=== PATIENT | female | born 1945 | race Caucasian/White ===

== ENCOUNTER → 2023-08-20 08:56 | Outpatient (CLI) | payer MEDICARE, OTHER, SELFPAY ==
[2023-08-20 10:16] LABS: Add Manual Diff / Slide Review NO; Basophils Absolute Auto 100 /uL (0-100); Basophils Percent Auto 0.7 % (0-2); Eosinophils Absolute Auto 200 /uL (0-450); Eosinophils Percent Auto 1.9 % (2-4); Hematocrit 44.5 % (36-46); Hemoglobin 15.1 g/dL (12.0-16.0); Lymphocytes Absolute Auto 1700 /uL (1100-4500); Lymphocytes Percent Auto 18.7 % (25-40); Mean Corpuscular HGB Conc 33.9 % (30-36); Mean Corpuscular Hemoglobin 32.2 PG (26-34); Mean Corpuscular Volume 95.1 fL (80-100); Monocytes Absolute Auto 900 /uL (0-900); Monocytes Percent Auto 10.4 % (3-14); Neutrophils Absolute Auto 6100 /uL (1500-7000); Neutrophils Percent Auto 68.3 % (50-75); Platelet Count 273 X10^3/uL (150-400); Red Blood Cell Count 4.68 X10^6/uL (4.0-5.2); Red Cell Distribution Width 12.7 % (11.6-14.8); White Blood Cell Count 8.9 X10^3/uL (4.5-11.0)
[2023-08-20 10:17] LABS: Appearance Urine UA CLEAR; Bilirubin Urine UA NEGATIVE (NEGATIVE); Color Urine UA YELLOW; Glucose Urine UA NEGATIVE (Negative); Ketones Urine UA NEGATIVE (NEGATIVE); Leukocyte Esterase Urine UA NEGATIVE (NEGATIVE); Nitrite Urine UA NEGATIVE (Negative); Occult Blood Urine UA NEGATIVE (Negative); Protein Urine UA NEGATIVE (Negative); Specific Gravity Urine UA <=1.005 (1.000-1.035)
[2023-08-20 10:21] LABS: pH Urine UA 6.5 (4.5-8.0)
[2023-08-20 10:35] LABS: BUN Creatinine Ratio 11.5 (6-22); Blood Urea Nitrogen 7 mg/dL (7-17); Calcium 8.8 mg/dL (8.4-10.2); Carbon Dioxide 27 mmol/L (22-32); Chloride 105 mmol/L (98-107); Estimated Glomerular Filt Rate > 60 mL/min (>60); Glucose 78 mg/dL (80-110); HEMOLYSIS < 15 (0-50); Potassium 4.4 mmol/L (3.4-5.1); Sodium 138 mmol/L (137-145)
[2023-08-20 10:36] LABS: Bacteria Urine Few (2-10); Culture Indicated Urine Cult Not Indicated; RBC Urine None Seen (0-5/HPF); Squamous Epithelial Cell Urine 1-5 /HPF (0-5/HPF); Urine Volume 10mL (spun); WBC Urine None Seen (0-5/HPF)
== END ==
PROVIDERS: PCP Internal Medicine Geriatric Medicine; Referring Provider Orthopaedic Surgery; Visit Provider Orthopaedic Surgery
DX: Z01.818 Encounter for other preprocedural examination (principal); Z01.812 Encounter for preprocedural laboratory examination; N39.0 Urinary tract infection, site not specified
CPT/HCPCS: 36415; 80048; 81001; 85025; 93005

== ENCOUNTER 2023-09-28 11:31 | Day surgery (SDC) | payer MEDICARE, OTHER, SELFPAY ==
[2023-09-16 13:34] VITALS: BMI 38.1
[2023-09-28] VITALS (8 sets, daily range): BP systolic 115–156; BP diastolic 60–82; PULSE 76–90; RESP 14–20; TEMP 35.9–36.8; O2SAT 94–100; BMI 39.1
[2023-09-28] MEDS: LACTATED RINGERS 1,000 ML 42 ML IV ×2 (11:57→16:07)
[2023-09-28] MEDS: VANCOMYCIN 1,000 MG/200 ML PIGGYBACK 200 MG IV (12:28)
[2023-09-28] MEDS: ACETAMINOPHEN 325 MG TABLET 975 MG PO (12:28)
--- NOTE | 2023-09-28 14:13 | PM.PREOP ---
Pre-operative Note Interval Note History & Physical reviewed/Exam performed by Physician: Yes Changes to H&P: No
--- NOTE | 2023-09-28 14:14 | PM.OP.1 ---
Operative Date/Time/Diagnoses Date of procedure: 09/28/23 Time of procedure: 14:30 Pre-op diagnosis: right knee OA Post-op diagnosis: same Procedure & Clinicians Procedure: right total knee arthroplasty Same procedure as scheduled: Yes Indications: The patient has had progressively worsening right knee pain with radiographic changes consistent with arthritis. Non-operative management has failed and the patient has requested total knee replacement. The risks, benefits and alternatives to surgery were discussed with the patient prior to proceeding. Risks discussed included, but were not limited to, failure to relieve pain, stiffness, infection, nerve damage, deep venous thrombosis, pulmonary embolism, stroke, coma, heart attack, permanent paralysis and , as well as the potential need for eventual revision of the prosthetic. Surgeon: Hayde Garcia Supervisor Erection Shop: Mario Pereira Anesthesia Type: General Operative Notes Findings: Severe right knee OA, adequate bone, adequate stability Closure Type: primary Specimen(s): none sent Prosthetic devices, grafts, tissues, transplants, or devices: Right knee [facility] BCS 2 size 5 femur, 3 tibia, poly 9, patella 32 by 7.5mm Estimated Blood Loss (mL): 250 Blood products transfused: none Tourniquet time (min): 89 Procedure in detail: The patient was seen in the pre-operative area, where the patient identified the right knee as the operative site and this was marked with my initials. The patient received pre-operative antibiotics, and was taken to the operating room and placed on the operative table in the supine position. After satisfactory anesthesia, a [employer] out was performed. The right leg was encircled with a tourniquet about the proximal thigh, and the leg was prepared from the toes to the tourniquet with ChloroPrep in the usual fashion and draped through sterile drapes. The leg was elevated and exsanguinated with Eschmark bandage and the tourniquet inflated to [300] mmHg pressure. A PA was used during the procedure and was essential for intraoperative retraction and safe implantation of the components The knee was approached through an approximately 18 cm incision centered over the patella and carried into the knee through a medial parapatellar arthrotomy. Portion of the medial and lateral meniscus was resected. Soft tissue was carefully mobilized around the patella the patella was measured with a caliper. Bone was resected from the patella and the patellar height was reconstituted with up an appropriate sized patellar component. A cover was then placed on the patella. A small amount of additional medial and lateral meniscus was resected. Cori robotic pins were placed in the femur for navigation. The knee was carefully traced and pre and postoperative range of motion was carefully checked. The Cori shahzad was used to resect the distal femur. It looked like an appropriate distal femoral cut and the cut was made without difficulty. The rotation was assessed and the appropriate size femoral guide was placed on the distal femur and finishing cuts were made. There was no evidence of notching. The anterior, posterior and chamfer cuts were then made. The posterior osteophytes and soft tissues were then removed. The posterior capsule was injected with part of a mixture of 60 ml 0.25% Marcaine mixed with 20 ml Exparel for post operative pain control. The remainder of this mixture was injected into the capsule and subcutaneous tissues during cement curing. The tibia guide was carefully navigated both depth alignment and slope. This carefully pinned to the tibia and the saw was used to resect the proximal tibial plateau. It appeared to be an adequate cut. The rotation was assessed. The patient was placed in extension residual medial and lateral meniscus as well as any residual bone was carefully resected. [No] additional tibia was resected. Hemostasis was achieved especially posteriorly. Additional local was injected into the posterior capsule. The femoral component was trial was placed and the notch was finished. Trial tibial and femoral components were then placed and the knee placed through a range of motion. Range of motion was [0-130], with good stability throughout the range. The trials were then removed, and the tibia was finished. The bone was prepared with pulsatile lavage, and dried with a sponge. Cement was applied and the final prosthetics placed. Excess cement was removed during and after cement curing. A brief Betadine soak was performed. After confirming there was no extruded cement posteriorly, the final tibial insert was placed. The knee was copiously irrigated and the tourniquet deflated. Hemostasis was obtained with the Bovie cautery. The capsule was closed with interrupted Vicryl. The subcutaneous layer was closed with barbed sutures, and the skin with a running 3-0 V-Lock suture and skin grupo. A lorie dressing was applied and the patient was taken to recovery having tolerated the procedure well. Complications: none Post-operative Condition: stable Disposition: Acute Care Plan for aftercare: The patient will be maintained on a standard total knee replacement protocol with weight bearing as tolerated. The patient will receive aspirin and sequential compression devices for DVT prophylaxis. The patient will be discharged home when safe for the home environment.
--- NOTE | 2023-09-28 14:18 | SUR.PREOP ---
Time out performed at 1418 for nerve block placement by DIGITAL DESIGNER
--- NOTE | 2023-09-28 14:30 | DI.RAD.S_ITS ---
PROCEDURE: XR KNEE RT 1TO2V INDICATIONS: TOTAL RIGHT KNEE TECHNIQUE: 2 view(s) of the knee acquired. [facility] [place], XR KNEE 4+ VIEWS RIGHT, 09/10/2023, 11:10. FINDINGS: Bones: Patient is status post knee joint arthroplasty. Hardware components are in expected positions. Visualized bony structures are intact. Soft tissues: Overlying postoperative changes are noted. IMPRESSION: Expected post-operative appearance of the right knee arthroplasty. Dictated by: Robin Celeste M.D. on 09/29/2023 at 12:53 Approved by: Robin Celeste M.D. on 09/29/2023 at 12:53
--- NOTE | 2023-09-28 14:41 | SUR.PREOP ---
Block start time [1418] . Monitoring initiated and maintained throughout procedure. Oxygen and medications given per anesthesiologist instructions. Patient remained stable throughout procedure, no adverse reactions noted. Block end time [1432]. Tolerated adductor nerve block placement with no complications. VSS.
[2023-09-28] MEDS: TRANEXAMIC ACID 1,000 MG in SODIUM CHLORIDE 0.9% 100 ML 200 MG IV ×2 (15:00→16:53)
[2023-09-28] MEDS: CLINDAMYCIN 900 MG/50 ML PIGGYBACK 50 MG IV ×2 (15:00→23:05)
--- NOTE | 2023-09-28 15:26 | SUR.OPER ---
Supine on padded OR bed. Pillow under head, arms secured on padded armboards <90 degree abduction. Safety belt across torso. Non-operative leg secured with tape over blanket over lower leg. Operative leg secured in Juan positioner. Foam padded brace at thigh of operative leg.
[2023-09-28] MEDS: BUPIVACAINE 0.25% (PF) 30 ML, EPINEPHrine 0.15 MG INJ (15:33)
[2023-09-28] MEDS: BUPIVACAINE LIPOSOME 266 MG/20 ML VIAL INJ (15:36)
[2023-09-28] MEDS: OXYCODONE IR 5 MG TABLET PO (17:30)
[2023-09-28] MEDS: ONDANSETRON 4 MG/2 ML INJ IV (17:30)
[2023-09-28] MEDS: ACETAMINOPHEN 325 MG TABLET 650 MG PO ×2 (18:17→23:05)
[2023-09-28] MEDS: OXYCODONE IR 10 MG TABLET PO ×2 (18:18→20:53)
[2023-09-28] MEDS: LACTATED RINGERS 1,000 ML 100 ML IV (18:18)
[2023-09-28] MEDS: METOCLOPRAMIDE 10 MG/2 ML INJ IV (18:25)
[2023-09-28] MEDS: FUROSEMIDE 20 MG TABLET PO (20:53)
[2023-09-28] MEDS: TIZANIDINE 4 MG TABLET 2 MG PO (20:53)
[2023-09-28] MEDS: AMLODIPINE 5 MG TABLET PO (20:53)
[2023-09-28] MEDS: DOCUSATE 100 MG CAPSULE PO (20:53)
[2023-09-28] MEDS: ASPIRIN EC 81 MG TABLET PO (20:53)
[2023-09-28] MEDS: INSULIN GLARGINE 100 UNIT/ML 3ML PEN 40 UNIT SUBCUT (20:55)
[2023-09-28] MEDS: INSULIN LISPRO 100 UNIT/ML 3ML VIAL SUBCUT (20:55)
[2023-09-29] VITALS: BP 103/53; PULSE 78; RESP 17; TEMP 35.8; O2SAT 97
[2023-09-29] MEDS: OXYCODONE IR 10 MG TABLET PO ×5 (00:12→15:00)
[2023-09-29 04:00] VITALS: BP 130/56; PULSE 72; RESP 17; TEMP 35.8; O2SAT 97
[2023-09-29 05:09] LABS: Hematocrit 39.6 % (36-46); Hemoglobin 13.1 g/dL (12.0-16.0)
[2023-09-29] MEDS: ACETAMINOPHEN 325 MG TABLET 650 MG PO ×2 (05:15→12:25)
[2023-09-29] MEDS: CLINDAMYCIN 900 MG/50 ML PIGGYBACK 50 MG IV (05:59)
--- NOTE | 2023-09-29 07:40 | PM.DS.1 ---
History of Present Illness History of Present Illness Date Patient Seen: 09/29/23 Time Patient Seen: 07:40 Chief complaint: Right Total Knee Arthroplasty - Robot Narrative: right total knee arthroplasty Same procedure as scheduled: Yes Indications: The patient has had progressively worsening right knee pain with radiographic changes consistent with arthritis. Non-operative management has failed and the patient has requested total knee replacement. The risks, benefits and alternatives to surgery were discussed with the patient prior to proceeding. Risks discussed included, but were not limited to, failure to relieve pain, stiffness, infection, nerve damage, deep venous thrombosis, pulmonary embolism, stroke, coma, heart attack, permanent paralysis and , as well as the potential need for eventual revision of the prosthetic. Surgeon: Hayde Garcia Associate Producer: Mario Pereira Anesthesia Type: General Operative Notes Findings: Severe right knee OA, adequate bone, adequate stability Closure Type: primary Specimen(s): none sent Prosthetic devices, grafts, tissues, transplants, or devices: Right knee [employer] [facility] BCS 2 size 5 femur, 3 tibia, poly 9, patella 32 by 7.5mm Estimated Blood Loss (mL): 250 Blood products transfused: none Tourniquet time (min): 89 Discharge Providers Provider Date of admission: 09/28/2023 Discharge Date: 09/29/23 Primary care physician: Jair Leon MD Consults: 09/28/23 17:56 Consult to Discharge Planning Routine Comment: Consult to Occupational Therapy Evaluate & Treat Comment: Physician Instructions: Evaluate and treat Consult to Physical Therapy Evaluate & Treat Comment: Physician Instructions: postop TKA protocol Discharge provider: Lawrence Beaver PA-C Summary Hospital Course Discharge Diagnosis: Status post right knee arthroplasty Hospital Course: Multimodal pain control. Physical therapy. Status at Discharge Cognitive/behavioral status at discharge: oriented Functional status at discharge: uses cane/walker Overall status at discharge: patient is back to baseline Time Spent with Patient Time spent: Less than 30 minutes Exam Vital Signs (past 8 hours): - 09/29/23 00:00 09/29/23 04:00 Temperature 96.5 F L 96.5 F L Pulse Rate 78 72 Respiratory Rate 17 17 Blood Pressure 103/53 L 130/56 L Pulse Oximetry 97 97 Oxygen Flow Rate 0 0 Oxygen Delivery Method Room Air Oxygen Flow Rate 0 Narrative Exam Narrative: Patient is found resting comfortably in bed. Pain is controlled with oral medications. Patient is able to ambulate with assistance to urinate. Denies any fever chills nausea or vomiting. Denies any new numbness or tingling down the right lower extremity. She does state she has pre-existing bilateral neuropathy of the lower extremities. Dressing appears to be dry and well mantained. She is able dorsiflex and plantarflex at the ankles bilaterally against resistance. Able to flex and extend at the EHL bilaterally. Resp Effort & Inspection: normal respiratory effort and able to speak in complete sentences Objective Labs 09/29/23 04:17 Labs: Laboratory Results - last 24 hr 09/29/23 04:17 Hgb 13.1 Hct 39.6 PFSH Medical History (Updated 09/16/23 @ 14:32 by Brittnee George RN) History of COVID-19 (05/2022) Anesthesia complication Psoriasis Easy bruisability Breast cancer, left (05/2022) Osteoarthritis Diabetes HLD (hyperlipidemia) HTN (hypertension) Neuropathy Uses self-applied continuous glucose monitoring device Surgical History (Updated 09/16/23 @ 14:28 by Brittnee George RN) History of surgery Hx of bilateral mastectomy (05/2022) History of ankle surgery Hx of foot surgery Hx of tonsillectomy Hx of laparoscopy History of partial hysterectomy Hx of bilateral cataract extraction Social History household members: spouse Smoking Status: Former smoker alcohol intake: current Discharge Assessment & Plan Assessment and Plan Assessment: Status post right knee total arthroplasty Plan of Treatment: Discharge to home with family Patient states that she has on a pain contract in which she takes hydrocodone/acetaminophen on a monthly basis. She did state that the pain clinic was aware of her pending surgery and stated that she is allowed to receive narcotics from the surgeon. Explained to the patient that our policy is that we will prescribe oxycodone 5 mg to take every 4 hours as needed for postoperative pain #30. Any narcotics required after oxycodone has been exhausted is to be filled by her pain clinic provider. Patient is prescribed ibuprofen 600 mg take every 6 hours for mild pain inflammation. Patient may take [id number] acetaminophen 650 mg every 6 hours for low-grade pain. Patient states she already has antinausea medication at home. Patient will take aspirin 81 mg take 1 pill twice a day for DVT prophylaxis for 6 weeks. Patient will start physical therapy in the next 5-10 days. Patient will follow up in clinic in 2 weeks for wound check. Discharge Plan Discharge Plan Patient Disposition: Home Provider Discharge Comment: Pending PT approval Discharge orders & Medications Discharge Orders: Discharge (Order); Ordered 09/29/23 Ordered By: Lawrence Beaver Prescriptions: New aspirin 81 mg Tablet,Delayed Release (Dr/Ec) 81 mg PO BID Qty: 90 0RF acetaminophen 325 mg Tablet 650 mg PO Q6H Qty: 100 0RF oxycodone 5 mg Tablet 5 mg PO Q4HR PRN (Reason: Pain, Moderate (4-6)) Qty: 30 0RF ibuprofen 600 mg tablet 600 mg PO Q6HR Qty: 90 0RF Continued tizanidine 2 mg Tablet 2 mg PO BEDTIME amlodipine 5 mg Tablet 5 mg PO BID exemestane 25 mg Tablet 25 mg PO DAILY Rx Instructions: must administer after a meal furosemide 20 mg Tablet 20 mg PO BID acetaminophen 500 mg Capsule 500 mg PO DAILY PRN (Reason: Pain) insulin lispro 100 unit/mL Insulin Pen 8 unit SUBCUT TID insulin glargine [Lantus Solostar U-100 Insulin] 100 unit/mL (3 mL) Insulin Pen 40 unit SUBCUT BID Victoza 2-Chandana 0.6 mg/0.1 mL (18 mg/3 mL) Pen Injector 1.8 mg SUBCUT DAILY Discontinued hydrocodone-acetaminophen 7.5-325 mg Tablet 1 tab PO QD-BID Follow up/Referrals: Jair Leon MD [Primary Care Provider] - Hayde Garcia MD [Physician] - 10/12/23 11:30 am (Follow up w/ Rustam Beaver PA-C, at [facility] in [place].) Diet/Activity/Treatments Diet: Diet as Tolerated Activity: Weightbearing as tolerated. Walk frequently! Cold/Heat Therapy: Ice to knee as needed for pain. Skin/Wound/Dressing Care Report to your healthcare provider any signs of infection, such as:: chills, fever, night sweats, unusual drainage and unusual redness Dressing: May remove CORINNA wrap and shower on 10/01/2023. Leave dressing in place until follow up in office. In 5-7 days, batteries will , at which point you can cut off the battery pack and dispose of it. No bathing or otherwise soaking incision. Call the office if the dressing becomes saturated inside. Visit Report/Discharge Packet Stand Alone Forms: Patient Portal/API Discharge Data Primary Care Provider: Jair Leon Attending Provider: Sudhakar Horton VTE Deep Vein Thrombosis/Pulmonary Embolism Present on Admission: No
--- NOTE | 2023-09-29 09:00 | PT.IIE ---
Current Diagnoses Unilateral primary osteoarthritis, right knee (09/28/23) Surgery Performed Operation Date: 09/28/23 13:45 Actual Procedures p Total Knee Arthroplasty - Robot(Right) - Hayde Garcia MD Surgical History (Last Updated 09/16/23 @ 14:28 by Brittnee George, RN) History of ankle surgery History of partial hysterectomy History of surgery Hx of bilateral cataract extraction Hx of bilateral mastectomy (05/2022) Hx of foot surgery Hx of laparoscopy Hx of tonsillectomy Medical History (Last Updated 09/16/23 @ 14:32 by Brittnee George RN) Anesthesia complication Breast cancer, left (05/2022) Diabetes Easy bruisability History of COVID-19 (05/2022) HLD (hyperlipidemia) HTN (hypertension) Neuropathy Osteoarthritis Psoriasis Uses self-applied continuous glucose monitoring device Physical Therapy Inpatient Evaluation/Re-Eval M1 PT/OT-IP Prior Functional Status Start: 09/29/23 12:19 Freq: NEEDED Status: Active Protocol: Document 09/29/23 09:00 AB (Rec: 09/29/23 12:42 AB [id number]) Medical Review Prior Functional Status Medical History Reviewed Yes Communication able to make needs known Mobility and Gait pt stated that she was modified independent with all mobilities and ambulation without AD indoors with occasional use of her walking stick but uses her walking sticks all the time for outdoor mobility Activities of Daily Living and IADL's Pt having more difficulty with ADL and mobility needs. Prior Functional Level (Other details) Pt's daughter to stay to assist her and also her . Social History Household Members spouse Living Arrangements Mobile home Number of Floors (Floors) Two Floors Number of Stairs To Enter/Railing? 2 steps with R rail to enter the house Home Environment High Toilet,Walk in Shower Home Equipment Four Wheel Walker,Shower Seat without Backrest,Hand Held Shower,Grab Bars In Shower Additional Social History Comment pt has an adjustable bed M2 PT-IP Current Condition Start: 09/29/23 12:19 Freq: NEEDED Status: Active Protocol: Document 09/29/23 09:00 AB (Rec: 09/29/23 12:42 AB [id number]) Physical Therapy Current Condition Current Condition Evaluation Date 09/29/23 Treatment Diagnosis s/p R TKA; difficulty in walking Onset Date 09/28/23 M3 PT-IP Subjective Start: 09/29/23 12:19 Freq: NEEDED Status: Active Protocol: Document 09/29/23 09:00 AB (Rec: 09/29/23 12:42 AB [id number]) Subjective Physical Therapy Visit Type Type Initial Evaluation Visit Start Time 09:00 Visit Stop Time 10:10 Number of FINANCE ADVISOR Visits 0 Physical Therapy Visit Comments Patient Comments agreeable to do PT Therapy Pain Assessment Pain When Pain Assessed At Rest Pain Present Pain Present Pain Reported Location Right Knee Intensity 10 M4 PT-IP Mobility and Gait Start: 09/29/23 12:19 Freq: NEEDED Status: Active Protocol: Document 09/29/23 09:00 AB (Rec: 09/29/23 12:42 AB [id number]) PT-Bed Mobility Assessment Supine to Sit Supine to Sit Standby Assistance Sit to Supine Sit to Supine Standby Assistance,Minimal Assistance PT-Transfer Assessment Sit to and From Stand Sit to and from Stand Minimal Assistance,1 Person Assistance,Use of Upper Extremities Equipment Transfer Assistive Device Gait Belt,Front Wheeled Walker Orthotic/Prosthetic Devices or Brace: No Transfers Transfer Destination Bed,Chair Transfer Technique ambulated Transfer Ability Level of Assist Minimal Assistance,1 Person Assistance,Use of Upper Extremities Comments Mobility Comments pt sitting on the chair and agreeable to do PT. obtained PLOF and home set up from pt. post-op folder provided and reviewed contents with pt. reviewed HEP. daughter arrrived. pt completed sit to stand from chair min A and cues and ambulated in room using FWW ~30 ft min A and cues for R quads activation. pt with slight R knee buckling and presents with unsteady gait with decrease LE clearance from the floor. pt sat on EOB. completed sit to supine min A with LE elevation to bed. educated on bed mobility techniques and pt completed supine<>sit only needing SBA. pt sat on EOB. caregiver training conducted. educated pt's daughter on use of safety belt and how to assist pt. daughter required a repeated cues/instructions on how to put safety belt on pt. daughter assisted pt sit sit to stand and ambulation in room. daughter was able to assist pt with ambulation. pt sat on the chair. pt refused further activities. positioned pt on the chair. call light and table placed within reach. informed pt and family regarding current mobility level and concerns. pt with heavy UE use on FWW. pt stated that they can put a ramp in for her to use. informed pt regarding current low activity tolerance and may not be able to ambulate long distances even with ramp at this time. pt understood. caregiver training set up for this afternoon at 1 pm. Gait Assessment Gait Gait Assistance Required: Minimum Assistance Distance (Feet) 30 Able to Maintain Weight Bearing Status Yes During Gait Assistive Devices Assistive Device Gait Belt,Front Wheeled Walker Orthotic/Prosthetic Devices or Brace: No Gait Deviations General Gait Pattern Antalgic,Decreased Stride Length,Decreased Feet Clearance,Step-to Gait Factors Limiting Gait Function Factors Limiting Gait Function Decreased Activity Tolerance, Decreased Strength,Difficulty Following Directions,Limited Range of Motion,Pain,Poor Balance,Poor Safety Awareness PT-Balance Assessment Sitting Balance and Reactions Static Sitting Balance Ability Normal Dynamic Sitting Balance Ability Good Standing Balance and Reactions Static Standing Balance Ability Fair Dynamic Standing Balance Ability Fair Device Used FWW M5 PT-IP Objective Assessments Start: 09/29/23 12:19 Freq: NEEDED Status: Active Protocol: Document 09/29/23 09:00 (Rec: 09/29/23 12:42 [id number]) Orientation Orientation/Cognition Level of Alertness Alert Orientation Name,Place,Situation Language Function Ability No Deficits Noted Safety Awareness Decreased Safety Awareness Memory Description Short Term Impaired Gross Range of Motion Lower Extremity ROM Assessment Right Impaired Impairments R knee flexion: ~ 60 deg Strength Lower Extremity Strength Assessment Right Impaired Hip 3+/5 Knee 3+/5 Muscle Tone Muscle Tone WNL Yes M6 PT-IP Treatment Start: 09/29/23 12:19 Freq: NEEDED Status: Active Protocol: Document 09/29/23 09:00 (Rec: 09/29/23 12:42 [id number]) Physical Therapy Treatment Exercises Exercises Heel Slides Education Education Provided Precautions,Weight Bearing Status,Post-Op Packet,Safety M7 PT-IP Assessment and Plan Start: 09/29/23 12:19 Freq: NEEDED Status: Active Protocol: Document 09/29/23 09:00 (Rec: 09/29/23 12:42 [id number]) PT Summary Assessment and Plan Potential Rehabilitation Potential Fair Status of Condition at Evaluation Evolving Summary Impairments Pain,ROM,Strength,Balance, Coordination,Sensation,Tone, Cognition,Bed Mobility, Transfers,Gait,Activity Tolerance Assessment Summary Pt is a 78 y/o F s/p R TKA POD 1. pt is WBAT on RLE. pt requiring min A with transfers and ambulation using FWW but with decrease activity tolerance affecting mobility. caregiver training initiated but further training is needed . caregiver training set up at 1pm this afternoon. pt presents with unsteady gait with slight R knee buckling and heavy UE use on FWW during ambulation. pt has 2 steps to enter with R rail ascending and will complete stair training prior to d/c. will continue to assess. Goals Bed Mobility Goal Independent Transfer Goal Standby Assistance,Front Wheeled Walker Gait Goal Standby Assistance,Front Wheel Walker Gait Distance 200 Other Goals up/down 2 steps R rail SBA Days to Meet Goals 5 Frequency of Treatment Frequency Of Treatment Twice a Day Treatment Plan Physical Therapy Treatment Plan Bed Mobility Training,Transfer Training,Gait Training, Therapeutic Exercise,Balance Retraining,Post Op Education, Discharge Planning,Hot or Cold Pack,Neuromuscular Re-ed, Coordination Retraining,Manual Therapy Weight Bearing Status Weight Bearing Status Weight Bear as Tolerated Allowed Weight Bearing Amount (enter % RLE WBAT or #) (%) Recommendations To Nursing Amount of Assist Needed 1 Person Assist Discharge Recommendations PT Discharge Recommendations Home with 11/01 Assist Available,Home Health Transportation Needs at Discharge Private Vehicle
[2023-09-29] MEDS: INSULIN GLARGINE 100 UNIT/ML 3ML PEN 40 UNIT SUBCUT (09:08)
[2023-09-29] MEDS: ASPIRIN EC 81 MG TABLET PO (09:09)
[2023-09-29] MEDS: INSULIN LISPRO 100 UNIT/ML 3ML VIAL 8 UNIT SUBCUT ×2 (09:09→12:26)
[2023-09-29] MEDS: INSULIN LISPRO 100 UNIT/ML 3ML VIAL SUBCUT ×2 (09:09→12:26)
[2023-09-29] MEDS: DOCUSATE 100 MG CAPSULE PO (09:10)
[2023-09-29 09:30] VITALS: BP 121/51; PULSE 72; RESP 18; TEMP 36.2; O2SAT 99
--- NOTE | 2023-09-29 09:59 | PC.NURSE ---
Patients blood sugar 200, inuslin given. Patient also complained of pain to r.knee at 10/10. Given 10mg of po oxycodone for comfort and helpful. Patients blood pressure down to 110/44, will recheck her pressure a bit later and if this is up will give her lasix, and amlodipine. She is working with pt now. Dressing to R.knee is cdi with lorie dressing present, patients daughter is at bedside and will be here later to see her. Patient should be discharging home today.
--- NOTE | 2023-09-29 11:17 | OT.IP.EVAL ---
Current Diagnoses Unilateral primary osteoarthritis, right knee (09/28/23) Surgery Performed Operation Date: 09/28/23 13:45 Actual Procedures p Total Knee Arthroplasty - Robot(Right) - Hayde Garcia MD Past Medical History (Last Updated 09/16/23 @ 14:32 by Brittnee George, RN) Anesthesia complication Breast cancer, left (05/2022) Diabetes Easy bruisability History of COVID-19 (05/2022) HLD (hyperlipidemia) HTN (hypertension) Neuropathy Osteoarthritis Psoriasis Uses self-applied continuous glucose monitoring device Surgical History (Last Updated 09/16/23 @ 14:28 by Brittnee George, RN) History of ankle surgery History of partial hysterectomy History of surgery Hx of bilateral cataract extraction Hx of bilateral mastectomy (05/2022) Hx of foot surgery Hx of laparoscopy Hx of tonsillectomy Occupational Therapy Inpatient Evaluation/Re-Eval M1 PT/OT-IP Prior Functional Status Start: 09/29/23 11:19 Freq: NEEDED Status: Active Protocol: Document 09/29/23 11:19 [facility] (Rec: 09/29/23 11:36 [facility] [id number]) Medical Review Prior Functional Status Communication Independent Mobility and Gait Pt used a walking stick to get around. Activities of Daily Living and IADL's Pt having more difficulty with ADL and mobility needs. Prior Functional Level (Other details) Pt's daughter to stay to assist her and also her . Social History Household Members spouse Living Arrangements Mobile home Number of Floors (Floors) Two Floors Number of Stairs To Enter/Railing? 2 steps with no rails to enter Home Environment Standard Height Toilet,Walk in Shower Home Equipment Four Wheel Walker,Raised Toilet Seat w/Armrests,Hand Held Shower,Grab Bars In Shower Additional Social History Comment Pt has walking stick. M2 OT-IP Current Condition Start: 09/29/23 11:19 Freq: Status: Active Protocol: Document 09/29/23 11:19 [facility] (Rec: 09/29/23 11:36 [facility] [id number]) Occupational Therapy Current Condition Current Condition Evaluation Date 09/29/23 Treatment Diagnosis S/P R TKA Diagnosis Onset Date 09/28/23 M3 OT- IP Subjective and Pain Start: 09/29/23 11:19 Freq: Status: Active Protocol: Document 09/29/23 11:19 [facility] (Rec: 09/29/23 11:36 [facility] [id number]) OT- Subjective Occupational Therapy Visit Type Type Initial Evaluation Visit Start Time 10:44 Visit Stop Time 11:17 Occupational Therapy Visit Comments Patient Comments Pt initially not wanting to get up and then after encouragement agreed. Patient/Caregiver Goals TO go home. OT Pain Assessment Pain When Pain Assessed At Rest Pain Present Pain Present Pain Reported Location Right Knee Intensity 10 Scale Used Numeric (0 - 10) M4 OT- IP ADL's Start: 09/29/23 11:19 Freq: Status: Active Protocol: Document 09/29/23 11:19 [facility] (Rec: 09/29/23 11:36 [facility] [id number]) OT HUU-Cpuu-Lhtxucc General Evaluation Self-Feeding Ability Independent OT ADL-Grooming Comments OT Grooming Comments Pt states did earlier. OT ADL-Oral Care Comments Oral Care Comments Pt states did earlier. OT ADL-Dressing General Eval Lower Body Dressing Ability Maximum Assistance Comments OT Dressing Comments Able to show pt LB dressing equipment and educated of being mindful of her right knee postioning and to dress the RLE first and take out last. OT ADL-Toileting Comments OT Toileting Comments Pt not having to go at this time. Suggested pt get a BSC as pt states at home uses the toilet every 2 hours. Suggested use of toilet paper aid/bidet/ wipes and standing to wipe. OT ADL-Bathing Comments OT Bathing Comments Pt states the shower is too small and will probably just sponge bath initially. Pt also has a garden tub which she would like to turn into a walk in shower eventually. Educated to cover the dressing during shower as well. M5 OT- IP IADL's Start: 09/29/23 11:19 Freq: Status: Active Protocol: Document 09/29/23 11:19 [facility] (Rec: 09/29/23 11:36 [facility] [id number]) OT-Instrumental Activities of Daily Living Deficits IADL Deficits Identified Deficits Home Safety Awareness Awareness of Need for Assistance at Home Good Awareness Ability to Problem Solve Emergency Able to Problem Solve Situations Meal Preparation Meal Preparation Caregiver Provides Assist Consumer Safety Officer Consumer Safety Officer Caregiver Provides Assist M6 OT- IP Functional Cognition Start: 09/29/23 11:19 Freq: Status: Active Protocol: Document 09/29/23 11:19 [facility] (Rec: 09/29/23 11:36 [facility] [id number]) Cognitive Factors Limiting Selfcare Function Cognitive Ability Level of Alertness Alert Patient Orientation Name,Age,Birthday,Month,Date, Year,Day of Week,Place, Situation Attention Span Ability Capable of Focused Attention Ability to Follow Commands Able to Follow One Step Commands Cognitive Comments Cognitive Assessment Comments Pt needing safety cues to scoot forwards and push up from the recliner to stand. OT- Vision and Hearing OT- Hearing Assessment OT- Hearing Assessment WFL OT- Vision Assessment Visual Acuity Glasses For Reading Visual Attentiveness WFL Occular Pursuits WFL M7 OT- IP Mobility and Balance Start: 09/29/23 11:19 Freq: Status: Active Protocol: Document 09/29/23 11:19 [facility] (Rec: 09/29/23 11:36 [facility] [id number]) OT-Transfer Assessment Sit to and From Stand Sit to and from Stand Moderate Assistance Comments Mobility Comments Pt's daughter able to nakia/ doff the gait bed and assist pt to stand with MODA x1 to FWW. OT- Balance Assessment Sitting Balance and Reactions Static Sitting Balance Ability Good Dynamic Sitting Balance Ability Fair Standing Balance and Reactions Static Standing Balance Ability Fair M8 OT- IP Objective Assessments Start: 09/29/23 11:19 Freq: Status: Active Protocol: Document 09/29/23 11:19 [facility] (Rec: 09/29/23 11:36 [facility] [id number]) OT Gross Range of Motion Upper Extremity Range of Motion Assessment Within Functional Limits OT Strength Upper Extremity Strength Assessment Within Functional Limits OT Sensation Assessment Edema Edema Comments Pt bilateral legs are swollen right greater than left side. M9 OT- IP Assessment and Plan Start: 09/29/23 11:19 Freq: Status: Active Protocol: Document 09/29/23 11:19 [facility] (Rec: 09/29/23 11:36 [facility] [id number]) OT Summary Assessment and Plan Potential Rehabilitation Potential Good Analytic Complexity at Evaluation Low Summary OT Impairments Pain,Strength,Balance, Functional Mobility,Grooming, Dressing,Toileting,Bathing, Toilet Transfers,Shower Transfers,Activity Tolerance Progress Towards Goals Slow Progress due to Pain,Slow Progress due to Activity Tolerance Assessment Summary Pt low complexity and main barriers are pain ,steps, and will need assist for ADl and mobility needs. Pt has a supportive family and pt's daughter will be there to assist with ADL and mobility needs. Able to suggest getting equipment of BSC,FWW, manual wc, and LB dressing/ toileting equipment needs. Pt to go home with 24/7 available assist and outpt PT versus HH pending how well pt is able to manage the steps. Goals Grooming Goal Independent Dressing Goal Independent,Mail Handlers Supervisor,Sock Aid Toileting Goal Standby Assistance Bathing Goal Minimal Assistance Toilet Transfer Goal Independent Shower Transfer Goal Standby Assistance Patient/Caregiver Education Goal Caregiver Independent Assisting Patient Days to Meet Goals 7 Frequency of Treatment Frequency Of Treatment Once a Day Treatment Plan OT Treatment Plan ADL Training,Functional Mobility,Patient/Family Education,Discharge Planning Other Treatment Recommendations and Next Standing ADL's. Treatment Focus Discharge Recommendations OT Discharge Recommendations Home with 24/7 Assist Available,Home Health, Outpatient PT Other Discharge Recommendations Pending how well pt is able to manage the step at home outpt PT versus possibly HH. Home Equipment Needs BSC,FWW, WC, LB dressing/ toileting equipment Transportation Needs at Discharge Private Vehicle
[2023-09-29] MEDS: FUROSEMIDE 20 MG TABLET PO (11:50)
--- NOTE | 2023-09-29 12:40 | PT.IPTN ---
Current Diagnoses Unilateral primary osteoarthritis, right knee (09/28/23) Surgery Performed Operation Date: 09/28/23 13:45 Actual Procedures p Total Knee Arthroplasty - Robot(Right) - Hayde Garcia MD Physical Therapy Treatment Note M2 PT-IP Current Condition Start: 09/29/23 12:19 Freq: NEEDED Status: Active Protocol: Document 09/29/23 09:00 AB (Rec: 09/29/23 12:42 AB [id number]) Physical Therapy Current Condition Current Condition Evaluation Date 09/29/23 Treatment Diagnosis s/p R TKA; difficulty in walking Onset Date 09/28/23 M3 PT-IP Subjective Start: 09/29/23 12:19 Freq: NEEDED Status: Active Protocol: Document 09/29/23 13:47 TS (Rec: 09/29/23 14:09 TS [id number]) Subjective Physical Therapy Visit Type Type Treatment Note Visit Start Time 12:40 Visit Stop Time 13:20 Notes Family present for caregiver training BP 136/57 sitting, 187/78 standing. Number of USED CAR LOT PORTER Visits 1 Physical Therapy Visit Comments Patient Comments Pt reports more pain and increased swelling this afternoon in her RLE, pt is agreeable to do PT. Therapy Pain Assessment Pain When Pain Assessed At Rest Pain Present Pain Present Pain Reported M4 PT-IP Mobility and Gait Start: 09/29/23 12:19 Freq: NEEDED Status: Active Protocol: Document 09/29/23 13:47 TS (Rec: 09/29/23 14:09 TS [id number]) PT-Transfer Assessment Sit to and From Stand Sit to and from Stand Moderate Assistance Equipment Transfer Assistive Device Gait Belt,Front Wheeled Walker Orthotic/Prosthetic Devices or Brace: No Comments Mobility Comments BP in sitting 136/57. Daughter donned gait belt prior to mobility. STS from chair x2 ModA with cues for pushing from arms of chair. BP in standing 187/78 c/o some lightheadedness. She ambulated in room ~40'CGA from daughter with FWW and step to gait, pt c/o increasing pain. She performed steps x3 with CGA with single and ECLECTIC DOCTOR from daughter, required cues for step sequencing. Pt ambulated back to chair, was left in chair with all needs met. Gait Assessment Gait Gait Assistance Required: Contact Guard Assist Distance (Feet) 40 Able to Maintain Weight Bearing Status Yes During Gait Assistive Devices Assistive Device Gait Belt,Front Wheeled Walker Orthotic/Prosthetic Devices or Brace: No Gait Deviations General Gait Pattern Antalgic,Decreased Stride Length,Decreased Feet Clearance,Step-to Gait Factors Limiting Gait Function Factors Limiting Gait Function Decreased Activity Tolerance, Decreased Strength,Difficulty Following Directions,Limited Range of Motion,Pain,Poor Balance,Poor Safety Awareness Comments Gait Comments See mobility comments Stair Climbing Assessment Evaluation Level of Assist On Stairs Contact Guard Assistance,1 Person Assistance Devices Stair Climbing Assistive Devices Left Railing,Right Railing Technique/Endurance Stair Climbing Direction Ascend and Descend Stair Climbing Technique Step to Step Number of Steps Climbed 3 Comments Stair Climbing Comments See mobility comments PT-Balance Assessment Sitting Balance and Reactions Static Sitting Balance Ability Good Dynamic Sitting Balance Ability Fair Standing Balance and Reactions Static Standing Balance Ability Fair Dynamic Standing Balance Ability Fair Device Used FWW M5 PT-IP Objective Assessments Start: 09/29/23 12:19 Freq: NEEDED Status: Active Protocol: Document 09/29/23 09:00 AB (Rec: 09/29/23 12:42 AB [id number]) Orientation Orientation/Cognition Level of Alertness Alert Orientation Name,Place,Situation Language Function Ability No Deficits Noted Safety Awareness Decreased Safety Awareness Memory Description Short Term Impaired Gross Range of Motion Lower Extremity ROM Assessment Right Impaired Impairments R knee flexion: ~ 60 deg Strength Lower Extremity Strength Assessment Right Impaired Hip 3+/5 Knee 3+/5 Muscle Tone Muscle Tone WNL Yes M6 PT-IP Treatment Start: 09/29/23 12:19 Freq: NEEDED Status: Active Protocol: Document 09/29/23 13:47 TS (Rec: 09/29/23 14:09 [id number]) Physical Therapy Treatment Education Education Provided Precautions,Weight Bearing Status,Post-Op Packet,Safety M7 PT-IP Assessment and Plan Start: 09/29/23 12:19 Freq: NEEDED Status: Active Protocol: Document 09/29/23 13:47 TS (Rec: 09/29/23 14:09 TS [id number]) PT Summary Assessment and Plan Potential Rehabilitation Potential Fair Summary Impairments Pain,ROM,Strength,Balance, Coordination,Sensation,Tone, Cognition,Bed Mobility, Transfers,Gait,Activity Tolerance Progress Towards Goals Progressing Toward Goals Assessment Summary Cornelia is making progress with her mobility this session . She is ModA for STS from chair with daughters assistance. She ambulated ~40' CGA with FWW and slow step to gait. She performed stairs x3 with single rail and ECLECTIC DOCTOR from daughter. Her BP increased 187 /78 in standing from 136/57 in sitting, RN was notified of high BP in standing. PT is recommending pt return home with 24/7 assistance and HHPT. Goals Bed Mobility Goal Independent Transfer Goal Standby Assistance,Front Wheeled Walker Gait Goal Standby Assistance,Front Wheel Walker Gait Distance 200 Other Goals up/down 2 steps R rail SBA Days to Meet Goals 5 Frequency of Treatment Frequency Of Treatment Twice a Day Treatment Plan Physical Therapy Treatment Plan Bed Mobility Training,Transfer Training,Gait Training, Therapeutic Exercise,Balance Retraining,Post Op Education, Discharge Planning,Hot or Cold Pack,Neuromuscular Re-ed, Coordination Retraining,Manual Therapy Weight Bearing Status Weight Bearing Status Weight Bear as Tolerated Allowed Weight Bearing Amount (enter % RLE WBAT or #) (%) Recommendations To Nursing Amount of Assist Needed 1 Person Assist Discharge Recommendations PT Discharge Recommendations Home with 24/7 Assist Available,Home Health Transportation Needs at Discharge Private Vehicle
--- NOTE | 2023-09-29 14:17 | CM.DANOTE ---
Initial DCP Assessment Visit Reviewed EMR and team rounds for status updates. Met with pt and spouse at bedside to introduce self and role. Pt was expressing feeling very tired at the time, stated that her spouse will transport her home once medically cleared for discharge. Pt and spouse reside independently in their own home in [place], her dtr will also be staying in the home during her first days home for helping with care and home needs. Payor: Medicare Attending: Dr. Garcia Pt is a 78 year-old F placed in a OPB following her R-total knee arthroplasty completed yesterday. Pt has a hx of worsening R-knee pain, despite conservative effors such as exercise modification, anti-inflammatory medications, and injections. She feels as though this has interfered with her ability to complete her ADL's without assistance, and hasn't been able to drive in some time due to this. She has a plan to f/u with Ortho in 2-weeks, and has pre-scheduled OP PT for f/u. She and family decline any resource or support needs for home d/c. Plan is to d/c later this afternoon, family will drive her home. DCP will continue to follow for any further evolving needs prior to her d/c. Discharge Planning/Care Management CM Discharge Assessment Start: 09/29/23 14:12 Freq: Status: Active Protocol: Document 09/29/23 14:12 DPL (Rec: 09/29/23 14:16 DPL [id number]) Discharge Planning Assessment Assigned Customer Success Advocate AYDE Perkins Advance Directives? No History Provided By Patient,Family Member,Medical Record Has Patient been admitted in last 30 No days? Prior Living Arrangements Mobile home Household Members spouse Type of transporation used prior to Drives own vehicle admit Independent with ADL's No: modified independent Is patient alert and oriented? Yes Caregiver for Another No Patient/Family Preference Home with Home Health Barriers to Discharge No Discharge Plan Home Community Services Physical Therapy Transportation Arrangement Spouse Referrals Initiated None needed Whiteboard Updated in Patient Room with Yes name and ext. # of Customer Success Advocate Review Status In Process Please Provide Date Initial DC 09/29/23 Assessment Was Performed Pre-Anesthesia Assessment Start: 09/16/23 13:33 Freq: Status: Active Protocol: Document 09/16/23 13:34 CAB (Rec: 09/16/23 14:40 [facility] [id number]) Pre-Anesthesia Assessment Preferred Name Joellen Patient Information Reviewed Via Phone Assessment Assessment Completed With Patient Diagnostic Results BMP/CMP,CBC,EKG Comment Labs/EKG @ [facility] 08/20/23 Primary Care Provider Jair Leon Seen Specialist in Last 12 Months Yes Specialist Seen Oncologist,Orthopedist Primary Language Chinese Operations Staff Specialist Security Required No Height 165.1 cm Weight 103.873 kg Body Mass Index (BMI) 38.1 Hearing Ability Normal Visual Assist None Dentition Type Full- Upper & Lower Barriers to Learning None Hx Anesthesia Reactions Yes: Hard time waking me up sometimes Hx Family Anesthesia Reaction No Hx Malignant Hyperthermia No Hx Blood Transfusions No Anesthesia Review Requested No Material Control Supervisor No alcohol intake current alcohol intake frequency holidays/special occasions only Smoking Status Former smoker how long ago did patient quit smoking Quit 40 years ago Substance Use Type does not use Pain Present Pain Reported Musculoskeletal Symptoms Abnormal Gait,Difficulty Walking,Joint Pain History of Falling (Recent or History of No ) Patient is completely paralyzed or No completely immobile Mental Status Oriented to own ability Comment Hiking stick for outside ambulation Is patient on oxygen? No Does patient have BLUE/SOB No Hx Sleep Apnea No Currently Taking a Beta Belle No Can You Climb a Flight of Stairs Without Yes SOB Hx Chest Pain No Hx SOB No Hx Syncope or Dizziness No Anti-Coagulant Therapy No Has a Certified Genetic Counselor No Cardiac Testing No Hx Pacemaker/ICD No Pacemaker Rep Required? No Cardiac Clearance Received Not Applicable Diet Type At Home Regular Dysphagia No Chronic UTI No Bladder Pattern Frequency Urinary Catheter Present No Hx Urinary Self Catheterization No Diabetes Yes: Wears CGM Patient No Lactating No Presence of External or Internal Medical Yes: CGM, zaid eye IOLs, right Devices foot Received a COVID vaccine? Yes Marital Status Lives With spouse Current Living Arrangements Mobile home Number of Stairs To Enter/Railing? 2 Support System Child/Children,Spouse Does the Patient Have Assistance After Yes Surgery Patient Discharge Plan Description Return Home Comment Pt advised overnight length of stay per surgeon Feels Safe in Current Environment Yes Been Physically Hurt or Threatened By a No Person in Current Environment Do you have thoughts of harming yourself None or others? Are you currently considering suicide? No Do you have a plan to hurt yourself or No Plan others? Do You Have Any Spiritual Beliefs That No May Affect Your HC Choices? Do You Have Any Cultural Practices That No May Affect Your HC Choices? Comment Stephanie Who Can We Speak to About Patient's Care Family, friends Identifying Code for Release of Patient Declines to issue Information Health Care Proxy/Next of Kin Uri () Health Care Proxy Emergency Contact Name Barbara (daughter) Emergency Contact Advance Directives? No Power of Polymerization Kettle Operator No PAC Instructions Diabetes instructions,Do not shave/clip surgical site, Durable medical equipment, Medications to take/avoid, Nasal antibiotic,No ETOH/ petroleum product on skin DOS, NPO,Post-op transportation,Pre -surgical wash,Sensory aids, Sturdy shoes/comfortable clothes,Do not bring valuables and remove jewelry
== END 2023-09-29 15:00 | disposition home or self-care (01) ==
LOC: OR 11:32 → AC 11:33
PROVIDERS: PCP Internal Medicine Geriatric Medicine; Referring Provider Orthopaedic Surgery; Visit Provider Student in an Organized Health Care Education/Training Program
PROC: 0SRC0JZ Replacement of Right Knee Joint with Synthetic Substitute, Open Approach (ICD-10-PCS; CPT 27447; principal; 2023-09-28 13:45)
DX: M17.11 Unilateral primary osteoarthritis, right knee (principal); G89.18 Other acute postprocedural pain; M25.761 Osteophyte, right knee
CPT/HCPCS: 27447; 36415; 64450; 73560; 82962; 85014; 85018; 97116; 97162; 97165; 97530; 97535; C1776; C9290; J0171; J0330; J1815; J2405; J2704; J2765; J3010